=== PATIENT | male | born 1980 | race American Indian/Alaskan Native ===

== ENCOUNTER 2016-06-01 21:02 | Emergency (ER) | payer SELFPAY ==
[2016-06-01 21:24] VITALS: BP 124/70
[2016-06-01 22:33] LABS: Basophils % (Auto) 0.4 % (0.0-1.8); Eosinophils % (Auto) 1.9 % (0.0-4.3); Hematocrit 40.8 % (35.5-45.6); Hemoglobin 14.3 gm/dl (11.8-15.2); Mean Corpuscular HGB Conc 35 % (32-34); Mean Corpuscular Hemoglobin 28 pg (28-32); Mean Corpuscular Volume 79 fl (84-94); Platelet Count 191 K/mm3 (140-440); Red Blood Count 5.18 M/mm3 (3.65-5.03); Red Cell Distribution Width 13.7 % (13.2-15.2); White Blood Count 7.6 K/mm3 (4.5-11.0)
[2016-06-01 22:56] LABS: Anion Gap 13 mmol/L; BUN/Creatinine Ratio 11.81; Blood Urea Nitrogen 13 mg/dL (9-20); Calcium 9.3 mg/dL (8.4-10.2); Carbon Dioxide 28 mmol/L (22-30); Chloride 100.6 mmol/L (98-107); Glucose 94 mg/dL (75-100); Potassium 3.7 mmol/L (3.6-5.0); Sodium 138 mmol/L (137-145)
--- NOTE | 2016-06-06 13:40 | ED Elopement Review ---
ED Pt Elopement review - Results review Lab results: Laboratory Tests 06/01/16 06/01/16 22:07 22:07 WBC 7.6 RBC 5.18 H Hgb 14.3 Hct 40.8 MCV 79 L MCH 28 MCHC 35 H RDW 13.7 Plt Count 191 Lymph % (Auto) 40.8 H [place] % (Auto) 9.2 H Eos % (Auto) 1.9 Baso % (Auto) 0.4 Lymph # 3.1 [place] # 0.7 Eos # 0.1 Baso # 0.0 Seg Neutrophils % 47.7 Seg Neutrophils # 3.6 Carbon Dioxide 28 BUN 13 Creatinine 1.1 Estimated GFR > 60 BUN/Creatinine Ratio 11.81 Glucose 94 Calcium 9.3 Troponin T < 0.010 - Call Back decision Pt Call Back Decision: No action required
== END 2016-06-02 03:00 | disposition left against medical advice (07) ==
LOC: EDSEX → ED 21:02
DX: R07.9 Chest pain, unspecified (principal); Z53.21 Procedure and treatment not carried out due to patient leaving prior to being seen by health care provider
CPT/HCPCS: 36415; 80048; 84484; 85025; 93005; 93010